=== PATIENT | male | born 1970 | race Caucasian/White ===

== ENCOUNTER 2021-03-08 05:46 | Emergency (ER) | payer MEDICAID ==
[~2021-03-08] VITALS: Ht 190.5 cm; Wt 90.9 kg
[2021-03-08] MEDS: normal saline 1000ML IV soln IV ONE (06:39)
[2021-03-08] MEDS: normal saline 1000ml 1,000 ML IV ONE (06:39)
[2021-03-08] MEDS: vancomycin/NS 1 GM ADD-VANTAGE 250 ML IV ONE (06:40)
[2021-03-08] MEDS: ketorolac trometh. 30mg/ml inj. IV ONE (06:51)
[2021-03-08] MEDS: clindamycin 600mg/D5W 50ml 50 ML IV ONE (06:51)
[2021-03-08] MEDS: ondansetron/PF 4mg/2ml inj IV ONE (06:51)
[2021-03-08] MEDS: acetaminophen 325mg tablet PO ONE (06:52)
[2021-03-08 06:58] LABS: CLARITY,URINE CLEAR (Clear); COLOR,URINE YELLOW (Yellow); GLUCOSE, URINE NEGATIVE (Neg); KETONES,URINE NEGATIVE (Neg); LEUKOCYTE ESTERASE ,URINE NEGATIVE (Neg); NITRITES, URINE NEGATIVE (Neg); OCCULT BLOOD,URINE SMALL (Neg); PROTEIN,URINE NEGATIVE (Neg); UROBILINOGEN,URINE 0.2 E.U/dL (0.2-1.0)
[2021-03-08 07:01] LABS: BASOPHILS % (AUTO) 0.2 % (0-1); EOSINOPHILS % (AUTO) 0.1 % (0-6); HEMATOCRIT 38.8 % (42.0-52.0); HEMOGLOBIN 13.3 g/dl (14.0-17.9); LYMPHOCYTES # (AUTO) 0.9 X10'3 (1.1-4.8); LYMPHOCYTES % (AUTO) 7.4 % (21-51); MEAN CORPUSCULAR HEMOGLOBIN 31.8 PG (27.0-31.0); MEAN CORPUSCULAR HGB CONC 34.2 g/dL (33.0-36.5); MEAN PLATELET VOLUME 7.8 FL (7.4-10.4); MONOCYTES % (AUTO) 8.2 % (2-12); NEUTROPHILS # (AUTO) 9.8 X10'3 (1.8-7.7); NEUTROPHILS % (AUTO) 84.1 % (42-75); PLATELET COUNT 145 X10'3 (140-440); RED BLOOD COUNT 4.18 X10'6 (4.70-6.10); RED CELL DISTRIBUTION WIDTH 13.6 % (11.5-14.5); WHITE BLOOD COUNT 11.7 X10'3 (4.5-11.0)
[2021-03-08 07:11] LABS: ALANINE AMINOTRANSFERASE 50 U/L (12-78); ALBUMIN/GLOBULIN RATIO 0.8 (1.1-1.5); ALKALINE PHOSPHATASE 62 IU/L (46-116); ANION GAP 7 (8-16); ASPARTATE AMINO TRANSFERASE 43 U/L (10-37); BILIRUBIN,TOTAL 0.7 MG/DL (0.1-1.0); BLOOD UREA NITROGEN 13 MG/DL (7-18); BUN/CREATININE RATIO 12.1 (5.4-32.0); CALCIUM 8.4 MG/DL (8.5-10.1); CHLORIDE 98 MMOL/L (99-107); CREATININE 1.07 MG/DL (0.60-1.10); GLUCOSE 128 MG/DL (70-104); MAGNESIUM 2.1 MG/DL (1.5-2.4); POTASSIUM 4.4 MMOL/L (3.5-5.1); SODIUM 133 MMOL/L (135-145); TOTAL CARBON DIOXIDE 28.1 MMOL/L (24-32); TOTAL PROTEIN 6.9 G/DL (6.4-8.2); eGFR 73 ML/MIN
[2021-03-08 07:13] LABS: UA COLLECTION TYPE VOIDED
[2021-03-08 07:15] LABS: HYALINE CASTS 0-3 /LPF (NEGATIVE); SQUAMOUS EPITHELIAL CELL,UR FEW /LPF (FEW)
[2021-03-08 07:16] LABS: BACTERIA,URINE FEW /HPF (Neg); FINE GRANULAR CAST 0-3 /LPF (NEGATIVE); WBC,URINE 0-4 /HPF (0-4)
[2021-03-08] MEDS ORDERED: CLIN-15 PO (07:46)
[2021-03-08] MEDS ORDERED: DOXY100C43 PO (07:46)
[2021-03-08] MEDS ORDERED: ONDA4TAB6 PO (07:46)
[2021-03-08 08:45] VITALS: BP 124/77
[2021-03-08 10:27] LABS: PLATELET ESTIMATE NORMAL; TOTAL CELLS COUNTED 100
[2021-03-08 10:28] LABS: TOXIC VACUOLATION FEW
== END 2021-03-08 08:49 | disposition home or self-care (01) ==
LOC: ER 05:47
DX: L03.116 Cellulitis of left lower limb (principal); R11.2 Nausea with vomiting, unspecified; M79.89 Other specified soft tissue disorders; M79.605 Pain in left leg; R50.9 Fever, unspecified; Z79.2 Long term (current) use of antibiotics; Z79.899 Other long term (current) drug therapy
CPT/HCPCS: 36415; 71045; 73600; 80053; 81001; 83605; 83735; 84145; 85007; 85025; 87040; 93005; 96365; 96368; 96375; 99285; J1885; J2405; J3370; J7030; J3490

== ENCOUNTER 2021-03-13 02:20 | Inpatient (IN) | payer MEDICAID ==
[~2021-03-13] VITALS: Ht 190.5 cm; Wt 90.0 kg
[~2021-03-13 02:20] MED LIST: CLIN-15 PO; DOXY100C43 PO; ONDA4TAB6 PO
[2021-03-13] MEDS ORDERED: CefTRIAXone 2gm/D5W 50ml BAG 50 ML IV ONE (03:00)
[2021-03-13] MEDS ORDERED: vancomycin/NS 1 GM ADD-VANTAGE 250 ML IV ONE (03:00)
[2021-03-13 03:37] LABS: ALANINE AMINOTRANSFERASE 75 U/L (12-78); ALBUMIN 2.3 G/DL (3.4-5.0); ALBUMIN/GLOBULIN RATIO 0.6 (1.1-1.5); ALKALINE PHOSPHATASE 85 IU/L (46-116); ANION GAP 8 (8-16); ASPARTATE AMINO TRANSFERASE 46 U/L (10-37); BILIRUBIN,TOTAL 0.4 MG/DL (0.1-1.0); BLOOD UREA NITROGEN 15 MG/DL (7-18); BUN/CREATININE RATIO 14.7 (5.4-32.0); CALCIUM 8.3 MG/DL (8.5-10.1); CHLORIDE 103 MMOL/L (99-107); CREATININE 1.02 MG/DL (0.60-1.10); GLUCOSE 111 MG/DL (70-104); POTASSIUM 3.5 MMOL/L (3.5-5.1); SODIUM 137 MMOL/L (135-145); TOTAL CARBON DIOXIDE 26.1 MMOL/L (24-32); TOTAL PROTEIN 6.3 G/DL (6.4-8.2); eGFR 77 ML/MIN
[2021-03-13 03:39] LABS: BASOPHILS # (AUTO) 0.1 X10'3 (0-0.2); BASOPHILS % (AUTO) 1.5 % (0-1); EOSINOPHILS # (AUTO) 0.1 X10'3 (0-0.9); EOSINOPHILS % (AUTO) 1.4 % (0-6); HEMATOCRIT 33.6 % (42.0-52.0); HEMOGLOBIN 11.5 g/dl (14.0-17.9); LYMPHOCYTES % (AUTO) 10.5 % (21-51); MEAN CORPUSCULAR HEMOGLOBIN 31.8 PG (27.0-31.0); MEAN CORPUSCULAR HGB CONC 34.4 g/dL (33.0-36.5); MEAN CORPUSCULAR VOLUME 92.6 FL (78-98); MEAN PLATELET VOLUME 7.6 FL (7.4-10.4); MONOCYTES # (AUTO) 0.8 X10'3 (0-0.9); MONOCYTES % (AUTO) 7.9 % (2-12); NEUTROPHILS # (AUTO) 7.5 X10'3 (1.8-7.7); NEUTROPHILS % (AUTO) 78.7 % (42-75); PLATELET COUNT 263 X10'3 (140-440); RED BLOOD COUNT 3.62 X10'6 (4.70-6.10); RED CELL DISTRIBUTION WIDTH 13.9 % (11.5-14.5); WHITE BLOOD COUNT 9.6 X10'3 (4.5-11.0)
[2021-03-13] MEDS ORDERED: NO HOME MEDS (04:15)
[2021-03-13] MEDS ORDERED: iohexol 300mg/ml 100ml inj. ONE (04:34)
[2021-03-13 04:41] LABS: D-DIMER 0.66 MG/L FEU (0-0.50)
--- NOTE | 2021-03-13 04:44 | NUR ---
Patient to CT
[2021-03-13] MEDS ORDERED: morphine 2 MG/ML inj. syringe IV ONE ×2 (05:10→05:20)
[2021-03-13] MEDS ORDERED: potassium Cl 20 mEq SR tablet PO PRN ×2 (05:15)
[2021-03-13] MEDS ORDERED: acetaminophen 325mg tablet PO PRN (05:15)
[2021-03-13] MEDS ORDERED: ondansetron/PF 4mg/2ml inj IV PRN (05:15)
[2021-03-13] MEDS ORDERED: mag hydrox/Alum hydrox/simeth 30ml oral suspension PO PRN (05:15)
[2021-03-13] MEDS ORDERED: magnesium hydroxide 30ml (MOM) UD suspension PO PRN (05:15)
[2021-03-13] MEDS ORDERED: potassium Cl 40MEQ/1/2NS 520ml 520 ML IV PRN ×2 (05:15)
--- NOTE | 2021-03-13 07:00 | NUR ---
Patient in room [facility]. I have received report from Clarisse SAVAGE and had the opportunity to ask questions and assume patient care.
[2021-03-13] MEDS: K and/or MAG REPLACEMENT MC SCH ×2 (08:00→20:00)
[2021-03-13 08:13] VITALS: BP 111/78
[2021-03-13] MEDS: normal saline 1000ml 1,000 ML IV SCH ×3 (08:51→22:46)
[2021-03-13] MEDS: heparin, porcine 5000 units/ml vial SQ SCH ×2 (08:59→19:23)
[2021-03-13] MEDS: piperacillin/tazo 3.375gm/50ml 50 ML IV SCH ×2 (09:32→16:27)
[2021-03-13] MEDS: HYDROcodone/acetaminophen 10/325mg tab PO PRN ×3 (10:41→22:43)
[2021-03-13 12:36] VITALS: BP 99/66
[2021-03-13 12:50] VITALS: BP 110/66
--- NOTE | 2021-03-13 17:12 | NUR ---
PAGER ID: [phone] MESSAGE: Max Surg [phone] Re: [id number] Patients leg is getting more inflamed and increased redness to the site. Patient in increasing pain, Charge Nurse Hawa is concerned. Thanks Max
--- NOTE | 2021-03-13 17:30 | NUR ---
Antibiotic not hung at this time because zosyn is not compatible with the vanco retail shift manager will hang vanco as soon as they can.
--- NOTE | 2021-03-13 18:15 | NUR ---
Patient in room [facility]. I have received report from JANETTE Santana and had the opportunity to ask questions and assume patient care.
--- NOTE | 2021-03-13 18:23 | NUR ---
Patient in room [facility]. I have received report from JANETTE Santana and had the opportunity to ask questions and assume patient care.
--- NOTE | 2021-03-13 18:28 | NUR ---
Problems reprioritized. Patient report given, questions answered & plan of care reviewed with Trudy Grayson RN.
[2021-03-13] MEDS: morphine 2 MG/ML inj. syringe IV PRN (18:36)
--- NOTE | 2021-03-13 18:43 | NUR ---
Patient to CT
--- NOTE | 2021-03-13 18:45 | NUR ---
Patient back from CT.
[2021-03-13] MEDS: lactobacillus rhamnosus 10,000 MMU CELLS/CAPSULE PO SCH (19:23)
[2021-03-13] MEDS: VANCOmycin 1250MG/NS 250ml Bag 250 ML IV SCH (19:24)
[2021-03-13 20:20] VITALS: BP 106/69
[2021-03-14] VITALS (8 sets, daily range): BP systolic 90–134; BP diastolic 55–81
[2021-03-14] MEDS: piperacillin/tazo 3.375gm/50ml 50 ML IV SCH ×3 (00:13→15:47)
[2021-03-14] MEDS: HYDROcodone/acetaminophen 10/325mg tab PO PRN ×5 (03:25→20:54)
[2021-03-14] MEDS: VANCOmycin 1250MG/NS 250ml Bag 250 ML IV SCH ×2 (05:16→17:28)
[2021-03-14 06:00] LABS: BASOPHILS # (AUTO) 0.1 X10'3 (0-0.2); BASOPHILS % (AUTO) 1.2 % (0-1); EOSINOPHILS # (AUTO) 0.1 X10'3 (0-0.9); EOSINOPHILS % (AUTO) 1.4 % (0-6); HEMATOCRIT 35.7 % (42.0-52.0); HEMOGLOBIN 11.9 g/dl (14.0-17.9); LYMPHOCYTES # (AUTO) 0.9 X10'3 (1.1-4.8); LYMPHOCYTES % (AUTO) 11.7 % (21-51); MEAN CORPUSCULAR HEMOGLOBIN 31.1 PG (27.0-31.0); MEAN CORPUSCULAR HGB CONC 33.4 g/dL (33.0-36.5); MEAN CORPUSCULAR VOLUME 92.9 FL (78-98); MEAN PLATELET VOLUME 7.6 FL (7.4-10.4); MONOCYTES # (AUTO) 0.7 X10'3 (0-0.9); MONOCYTES % (AUTO) 8.5 % (2-12); NEUTROPHILS % (AUTO) 77.2 % (42-75); PLATELET COUNT 306 X10'3 (140-440); RED BLOOD COUNT 3.84 X10'6 (4.70-6.10); RED CELL DISTRIBUTION WIDTH 14.4 % (11.5-14.5); WHITE BLOOD COUNT 7.8 X10'3 (4.5-11.0)
--- NOTE | 2021-03-14 06:06 | NUR ---
Problems reprioritized. Patient report given, questions answered & plan of care reviewed with JANETTE Santana.
[2021-03-14 06:10] LABS: ALANINE AMINOTRANSFERASE 61 U/L (12-78); ALBUMIN 2.1 G/DL (3.4-5.0); ALBUMIN/GLOBULIN RATIO 0.5 (1.1-1.5); ALKALINE PHOSPHATASE 96 IU/L (46-116); ANION GAP 7 (8-16); ASPARTATE AMINO TRANSFERASE 32 U/L (10-37); BILIRUBIN,TOTAL 0.4 MG/DL (0.1-1.0); BLOOD UREA NITROGEN 11 MG/DL (7-18); BUN/CREATININE RATIO 12.6 (5.4-32.0); CHLORIDE 106 MMOL/L (99-107); CREATININE 0.87 MG/DL (0.60-1.10); GLUCOSE 91 MG/DL (70-104); POTASSIUM 4.4 MMOL/L (3.5-5.1); SODIUM 140 MMOL/L (135-145); TOTAL CARBON DIOXIDE 27.1 MMOL/L (24-32); eGFR > 90 ML/MIN
--- NOTE | 2021-03-14 06:50 | NUR ---
Patient in room [facility]. I have received report from Trudy Grayson RN and had the opportunity to ask questions and assume patient care.
--- NOTE | 2021-03-14 07:15 | NUR ---
PAGER ID: [phone] MESSAGE: Max Surg [phone] RE: Madonna German 352 patient had a critical Hct of 21.9 thanks Max.
[2021-03-14] MEDS: lactobacillus rhamnosus 10,000 MMU CELLS/CAPSULE PO SCH ×2 (07:32→20:54)
[2021-03-14] MEDS: heparin, porcine 5000 units/ml vial SQ SCH ×2 (07:35→20:56)
[2021-03-14] MEDS: K and/or MAG REPLACEMENT MC SCH ×2 (08:00→20:00)
--- NOTE | 2021-03-14 08:25 | NUR ---
The last BM was 03/13 in the am reported by the reported by patient. Addendum: 03/14/21 at 0835 by Singh BARBER Amended: Links added.
[2021-03-14] MEDS ORDERED: pneumococcal 23-VAL P-sac vacc 25 mcg/0.5ml vial IMVAC ONE (10:00)
[2021-03-14] MEDS: normal saline 1000ml 1,000 ML IV SCH (11:30)
--- NOTE | 2021-03-14 18:40 | NUR ---
Problems reprioritized. Patient report given, questions answered & plan of care reviewed with ERVIN PULIDO RN.
--- NOTE | 2021-03-14 18:43 | NUR ---
Patient in room [facility]. I have received report from JANETTE Santana and had the opportunity to ask questions and assume patient care.
[2021-03-14] MEDS: linezolid 600mg tablet PO SCH (20:55)
[2021-03-15] VITALS: BP 110/64
[2021-03-15] MEDS: HYDROcodone/acetaminophen 10/325mg tab PO PRN ×5 (01:02→21:43)
[2021-03-15] MEDS: cefazolin/dext.iso 2gm/100ml 100 ML IV SCH ×4 (01:02→23:45)
[2021-03-15] MEDS ORDERED: VANCOMYCIN LEVEL IV ONE (04:30)
[2021-03-15 05:52] LABS: BASOPHILS # (AUTO) 0.1 X10'3 (0-0.2); BASOPHILS % (AUTO) 1.3 % (0-1); EOSINOPHILS # (AUTO) 0.1 X10'3 (0-0.9); EOSINOPHILS % (AUTO) 1.7 % (0-6); HEMOGLOBIN 13.2 g/dl (14.0-17.9); LYMPHOCYTES # (AUTO) 1.3 X10'3 (1.1-4.8); LYMPHOCYTES % (AUTO) 15.3 % (21-51); MEAN CORPUSCULAR HEMOGLOBIN 31.4 PG (27.0-31.0); MEAN CORPUSCULAR HGB CONC 33.9 g/dL (33.0-36.5); MEAN CORPUSCULAR VOLUME 92.7 FL (78-98); MEAN PLATELET VOLUME 7.3 FL (7.4-10.4); MONOCYTES # (AUTO) 0.7 X10'3 (0-0.9); MONOCYTES % (AUTO) 8.7 % (2-12); NEUTROPHILS # (AUTO) 6.3 X10'3 (1.8-7.7); PLATELET COUNT 361 X10'3 (140-440); RED BLOOD COUNT 4.21 X10'6 (4.70-6.10); RED CELL DISTRIBUTION WIDTH 14.4 % (11.5-14.5); WHITE BLOOD COUNT 8.6 X10'3 (4.5-11.0)
[2021-03-15 05:58] LABS: ALANINE AMINOTRANSFERASE 56 U/L (12-78); ALBUMIN 2.2 G/DL (3.4-5.0); ALBUMIN/GLOBULIN RATIO 0.5 (1.1-1.5); ALKALINE PHOSPHATASE 80 IU/L (46-116); ANION GAP 6 (8-16); ASPARTATE AMINO TRANSFERASE 28 U/L (10-37); BILIRUBIN,TOTAL 0.3 MG/DL (0.1-1.0); BLOOD UREA NITROGEN 10 MG/DL (7-18); BUN/CREATININE RATIO 10.8 (5.4-32.0); CALCIUM 8.4 MG/DL (8.5-10.1); CHLORIDE 104 MMOL/L (99-107); CREATININE 0.93 MG/DL (0.60-1.10); GLUCOSE 74 MG/DL (70-104); POTASSIUM 4.3 MMOL/L (3.5-5.1); SODIUM 138 MMOL/L (135-145); TOTAL CARBON DIOXIDE 27.8 MMOL/L (24-32); TOTAL PROTEIN 6.8 G/DL (6.4-8.2); eGFR 86 ML/MIN
--- NOTE | 2021-03-15 06:26 | NUR ---
Problems reprioritized. Patient report given, questions answered & plan of care reviewed with JANETTE Cornelius.
[2021-03-15 07:00] VITALS: BP 108/63
[2021-03-15] MEDS: lactobacillus rhamnosus 10,000 MMU CELLS/CAPSULE PO SCH ×2 (07:58→19:41)
[2021-03-15] MEDS: heparin, porcine 5000 units/ml vial SQ SCH ×2 (07:58→19:41)
[2021-03-15] MEDS: linezolid 600mg tablet PO SCH ×2 (07:58→19:41)
[2021-03-15] MEDS: K and/or MAG REPLACEMENT MC SCH ×2 (08:00→19:17)
[2021-03-15] MEDS: morphine 2 MG/ML inj. syringe IV PRN ×3 (08:00→20:14)
[2021-03-15 12:16] VITALS: BP 103/58
--- NOTE | 2021-03-15 15:31 | NUR ---
Harshad Consult: Pt seen by RD for written/verbal low-tyramine diet ed w/ RD contact information provided. Pt reports has partial dentures requesting chopped meats and dislikes carrots; dietary notified. Pt reports has salami w/ him at bedside; RD encouraged limitations of salami at this time and encouraged pt to contact dietitian's office if further questions/concerns. Addendum: 03/15/21 at [address] Amended: Links added.
[2021-03-15 18:00] VITALS: BP 105/63
--- NOTE | 2021-03-15 18:05 | NUR ---
Problems reprioritized. Patient report given, questions answered & plan of care reviewed with Sayra Grayson RN.
--- NOTE | 2021-03-15 18:28 | NUR ---
Patient in room [facility]. I have received report from JANETTE Cornelius and had the opportunity to ask questions and assume patient care.
--- NOTE | 2021-03-15 18:32 | NUR ---
Patient in room [facility]. I have received report from JANETTE Cornelius and had the opportunity to ask questions and assume patient care.
[2021-03-15 22:10] VITALS: BP 101/58
[2021-03-15] MEDS: diphenhydrAMINE 25mg capsule PO PRN (23:45)
[2021-03-16] MEDS: morphine 2 MG/ML inj. syringe IV PRN ×6 (00:54→22:02)
[2021-03-16] MEDS: HYDROcodone/acetaminophen 10/325mg tab PO PRN ×5 (03:17→23:47)
[2021-03-16 06:17] LABS: BASOPHILS # (AUTO) 0.1 X10'3 (0-0.2); BASOPHILS % (AUTO) 1.2 % (0-1); EOSINOPHILS # (AUTO) 0.1 X10'3 (0-0.9); EOSINOPHILS % (AUTO) 1.1 % (0-6); HEMATOCRIT 37.6 % (42.0-52.0); HEMOGLOBIN 12.4 g/dl (14.0-17.9); LYMPHOCYTES % (AUTO) 11.1 % (21-51); MEAN CORPUSCULAR HEMOGLOBIN 30.5 PG (27.0-31.0); MEAN CORPUSCULAR HGB CONC 32.9 g/dL (33.0-36.5); MEAN CORPUSCULAR VOLUME 92.6 FL (78-98); MEAN PLATELET VOLUME 7.3 FL (7.4-10.4); MONOCYTES # (AUTO) 0.4 X10'3 (0-0.9); MONOCYTES % (AUTO) 4.9 % (2-12); NEUTROPHILS # (AUTO) 7.4 X10'3 (1.8-7.7); NEUTROPHILS % (AUTO) 81.7 % (42-75); PLATELET COUNT 398 X10'3 (140-440); RED BLOOD COUNT 4.05 X10'6 (4.70-6.10); RED CELL DISTRIBUTION WIDTH 14.6 % (11.5-14.5)
[2021-03-16 06:22] LABS: ALANINE AMINOTRANSFERASE 50 U/L (12-78); ALBUMIN/GLOBULIN RATIO 0.5 (1.1-1.5); ALKALINE PHOSPHATASE 66 IU/L (46-116); ANION GAP 7 (8-16); ASPARTATE AMINO TRANSFERASE 25 U/L (10-37); BILIRUBIN,TOTAL 0.3 MG/DL (0.1-1.0); BLOOD UREA NITROGEN 12 MG/DL (7-18); BUN/CREATININE RATIO 12.6 (5.4-32.0); CALCIUM 8.2 MG/DL (8.5-10.1); CHLORIDE 104 MMOL/L (99-107); CREATININE 0.95 MG/DL (0.60-1.10); GLUCOSE 110 MG/DL (70-104); POTASSIUM 4.4 MMOL/L (3.5-5.1); SODIUM 138 MMOL/L (135-145); TOTAL CARBON DIOXIDE 27.5 MMOL/L (24-32); TOTAL PROTEIN 6.4 G/DL (6.4-8.2); eGFR 84 ML/MIN
--- NOTE | 2021-03-16 06:23 | NUR ---
Problems reprioritized. Patient report given, questions answered & plan of care reviewed with JANETTE Cornelius.
[2021-03-16 07:00] VITALS: BP 134/75
[2021-03-16] MEDS: K and/or MAG REPLACEMENT MC SCH ×2 (08:00→19:35)
[2021-03-16] MEDS: heparin, porcine 5000 units/ml vial SQ SCH ×2 (08:53→19:35)
[2021-03-16] MEDS: linezolid 600mg tablet PO SCH ×2 (08:53→19:34)
[2021-03-16] MEDS: cefazolin/dext.iso 2gm/100ml 100 ML IV SCH ×3 (08:53→23:41)
[2021-03-16] MEDS: lactobacillus rhamnosus 10,000 MMU CELLS/CAPSULE PO SCH ×2 (08:53→19:34)
[2021-03-16 12:11] VITALS: BP 120/76
[2021-03-16] MEDS ORDERED: emollient combination-Eucerin 250 ML LOTION TP SCH (13:40)
--- NOTE | 2021-03-16 13:40 | NUR ---
Pt requests to change RNs. Radha Goode RN will assume care of this patient.
--- NOTE | 2021-03-16 14:52 | NUR ---
Problems reprioritized. Patient report given, questions answered & plan of care reviewed with Radha SAVAGE.
[2021-03-16 18:00] VITALS: BP 139/74
--- NOTE | 2021-03-16 18:15 | NUR ---
Problems reprioritized. Patient report given, questions answered & plan of care reviewed with PRUDENCEJANETTE. Addendum: 03/16/21 at 1816 by Radha Estrada RN PLEASE DISREGARD NOTE. WRONG PATIENT.
--- NOTE | 2021-03-16 18:16 | NUR ---
Problems reprioritized. Patient report given, questions answered & plan of care reviewed with JANETTE WOODWARD.
[2021-03-16] MEDS: mineral oil/petrolatum, white cream 113gm jar TP SCH (18:48)
[2021-03-17] VITALS: BP 118/76
--- NOTE | 2021-03-17 02:00 | NUR ---
Patient in room [facility]. I have received report from Janeth SAVAGE and had the opportunity to ask questions and assume patient care.
[2021-03-17] MEDS: morphine 2 MG/ML inj. syringe IV PRN ×4 (02:24→19:10)
--- NOTE | 2021-03-17 02:35 | NUR ---
I have reviewed and agree with the assessment preformed by Janeth SAVAGE
[2021-03-17] MEDS: HYDROcodone/acetaminophen 10/325mg tab PO PRN ×4 (03:52→22:46)
--- NOTE | 2021-03-17 06:08 | NUR ---
Problems reprioritized. Patient report given, questions answered & plan of care reviewed with Radha SAVAGE.
[2021-03-17 06:15] LABS: BASOPHILS # (AUTO) 0.1 X10'3 (0-0.2); BASOPHILS % (AUTO) 1.2 % (0-1); EOSINOPHILS # (AUTO) 0.2 X10'3 (0-0.9); EOSINOPHILS % (AUTO) 2.4 % (0-6); HEMATOCRIT 38.6 % (42.0-52.0); HEMOGLOBIN 12.8 g/dl (14.0-17.9); LYMPHOCYTES # (AUTO) 1.5 X10'3 (1.1-4.8); LYMPHOCYTES % (AUTO) 22.5 % (21-51); MEAN CORPUSCULAR HEMOGLOBIN 30.7 PG (27.0-31.0); MEAN CORPUSCULAR HGB CONC 33.1 g/dL (33.0-36.5); MEAN CORPUSCULAR VOLUME 92.7 FL (78-98); MEAN PLATELET VOLUME 6.7 FL (7.4-10.4); MONOCYTES # (AUTO) 0.6 X10'3 (0-0.9); MONOCYTES % (AUTO) 9.7 % (2-12); NEUTROPHILS # (AUTO) 4.3 X10'3 (1.8-7.7); NEUTROPHILS % (AUTO) 64.2 % (42-75); PLATELET COUNT 408 X10'3 (140-440); RED BLOOD COUNT 4.17 X10'6 (4.70-6.10); RED CELL DISTRIBUTION WIDTH 14.4 % (11.5-14.5); WHITE BLOOD COUNT 6.7 X10'3 (4.5-11.0)
[2021-03-17 06:34] LABS: ALANINE AMINOTRANSFERASE 52 U/L (12-78); ALBUMIN 2.1 G/DL (3.4-5.0); ALBUMIN/GLOBULIN RATIO 0.5 (1.1-1.5); ALKALINE PHOSPHATASE 68 IU/L (46-116); ANION GAP 5 (8-16); ASPARTATE AMINO TRANSFERASE 26 U/L (10-37); BILIRUBIN,TOTAL 0.3 MG/DL (0.1-1.0); BLOOD UREA NITROGEN 12 MG/DL (7-18); BUN/CREATININE RATIO 12.5 (5.4-32.0); CALCIUM 8.5 MG/DL (8.5-10.1); CHLORIDE 105 MMOL/L (99-107); CREATININE 0.96 MG/DL (0.60-1.10); GLUCOSE 82 MG/DL (70-104); POTASSIUM 4.6 MMOL/L (3.5-5.1); SODIUM 140 MMOL/L (135-145); TOTAL CARBON DIOXIDE 29.7 MMOL/L (24-32); TOTAL PROTEIN 6.6 G/DL (6.4-8.2); eGFR 83 ML/MIN
[2021-03-17 07:25] VITALS: BP 106/63
[2021-03-17] MEDS: cefazolin/dext.iso 2gm/100ml 100 ML IV SCH ×2 (07:40→16:17)
[2021-03-17] MEDS: mineral oil/petrolatum, white cream 113gm jar TP SCH (07:40)
[2021-03-17] MEDS: lactobacillus rhamnosus 10,000 MMU CELLS/CAPSULE PO SCH ×2 (07:40→19:09)
[2021-03-17] MEDS: linezolid 600mg tablet PO SCH ×2 (07:40→19:09)
[2021-03-17] MEDS: heparin, porcine 5000 units/ml vial SQ SCH ×2 (07:40→19:10)
[2021-03-17] MEDS: K and/or MAG REPLACEMENT MC SCH ×2 (07:54→19:22)
[2021-03-17 12:05] VITALS: BP 112/91
[2021-03-17 18:00] VITALS: BP 125/65
--- NOTE | 2021-03-17 18:09 | NUR ---
Problems reprioritized. Patient report given, questions answered & plan of care reviewed with JANETTE Retana.
--- NOTE | 2021-03-17 18:20 | NUR ---
Patient in room [facility]. I have received report from BETHANY SAVAGE and had the opportunity to ask questions and assume patient care.
[2021-03-18] MEDS: cefazolin/dext.iso 2gm/100ml 100 ML IV SCH ×2 (00:04→08:01)
[2021-03-18] MEDS: morphine 2 MG/ML inj. syringe IV PRN ×4 (00:17→14:34)
[2021-03-18 00:35] VITALS: BP 112/64
[2021-03-18] MEDS: HYDROcodone/acetaminophen 10/325mg tab PO PRN ×3 (02:57→12:04)
[2021-03-18] MEDS: diphenhydrAMINE 25mg capsule PO PRN (02:58)
[2021-03-18 06:09] LABS: BASOPHILS % (AUTO) 0.7 % (0-1); EOSINOPHILS # (AUTO) 0.1 X10'3 (0-0.9); EOSINOPHILS % (AUTO) 1.9 % (0-6); HEMATOCRIT 37.9 % (42.0-52.0); HEMOGLOBIN 12.9 g/dl (14.0-17.9); LYMPHOCYTES # (AUTO) 1.3 X10'3 (1.1-4.8); LYMPHOCYTES % (AUTO) 19.6 % (21-51); MEAN CORPUSCULAR HEMOGLOBIN 31.4 PG (27.0-31.0); MEAN CORPUSCULAR HGB CONC 34.1 g/dL (33.0-36.5); MEAN CORPUSCULAR VOLUME 92.2 FL (78-98); MEAN PLATELET VOLUME 6.9 FL (7.4-10.4); MONOCYTES # (AUTO) 0.7 X10'3 (0-0.9); MONOCYTES % (AUTO) 10.3 % (2-12); NEUTROPHILS # (AUTO) 4.5 X10'3 (1.8-7.7); NEUTROPHILS % (AUTO) 67.5 % (42-75); PLATELET COUNT 431 X10'3 (140-440); RED BLOOD COUNT 4.12 X10'6 (4.70-6.10); RED CELL DISTRIBUTION WIDTH 14.1 % (11.5-14.5); WHITE BLOOD COUNT 6.7 X10'3 (4.5-11.0)
[2021-03-18 06:28] LABS: ALANINE AMINOTRANSFERASE 50 U/L (12-78); ALBUMIN 2.2 G/DL (3.4-5.0); ALBUMIN/GLOBULIN RATIO 0.4 (1.1-1.5); ALKALINE PHOSPHATASE 69 IU/L (46-116); ANION GAP 7 (8-16); ASPARTATE AMINO TRANSFERASE 27 U/L (10-37); BILIRUBIN,TOTAL 0.4 MG/DL (0.1-1.0); BLOOD UREA NITROGEN 14 MG/DL (7-18); BUN/CREATININE RATIO 15.7 (5.4-32.0); CALCIUM 8.5 MG/DL (8.5-10.1); CHLORIDE 104 MMOL/L (99-107); CREATININE 0.89 MG/DL (0.60-1.10); GLUCOSE 83 MG/DL (70-104); POTASSIUM 4.5 MMOL/L (3.5-5.1); SODIUM 139 MMOL/L (135-145); TOTAL CARBON DIOXIDE 27.7 MMOL/L (24-32); TOTAL PROTEIN 7.1 G/DL (6.4-8.2); eGFR 90 ML/MIN
--- NOTE | 2021-03-18 06:35 | NUR ---
Problems reprioritized. Patient report given, questions answered & plan of care reviewed with LALITO SAVAGE.
--- NOTE | 2021-03-18 06:57 | NUR ---
Patient in room [facility] 345A. I have received report from JANETTE MARTIN and had the opportunity to ask questions and assume patient care.
[2021-03-18] MEDS: lactobacillus rhamnosus 10,000 MMU CELLS/CAPSULE PO SCH (07:59)
[2021-03-18] MEDS: linezolid 600mg tablet PO SCH (07:59)
[2021-03-18 08:00] VITALS: BP 99/57
[2021-03-18] MEDS: K and/or MAG REPLACEMENT MC SCH (08:00)
[2021-03-18] MEDS: heparin, porcine 5000 units/ml vial SQ SCH (08:01)
[2021-03-18 12:00] VITALS: BP 114/55
[2021-03-18] MEDS: mineral oil/petrolatum, white cream 113gm jar TP SCH (12:04)
--- NOTE | 2021-03-18 12:06 | NUR ---
Initial: Pt admit DX L leg cellulitis PO 100% avg regular diet meeting needs. [facility] 03/15. Will continue to monitor. Rec: 1. continue regular diet 2. routine bowel care 3. scaled wt this admit Addendum: 03/18/21 at [address] Amended: Links added.
[2021-03-18] MEDS ORDERED: LINE600T12 PO (16:42)
[2021-03-18] MEDS ORDERED: HYDR-3965 PO (16:42)
--- NOTE | 2021-03-18 17:20 | NUR ---
PATIENT STABLE AND APPROPRIATE FOR DISCHARGE, IV TAKEN OUT, EDUCATION GIVEN, SCRIPT GIVEN FOR [facility], ABX E-SCRIPTED TO PREFERRED PHARMACY, ALL BELONGINGS SENT WITH PATIENT, PATIENT TAKEN TO CAR BY WHEEL CHAIR WHERE PATIENT WILL DRIVE SELF HOME
== END 2021-03-18 17:36 | disposition home or self-care (01) | DRG 383 ==
LOC: ER 02:20 → ED HOLD 05:13 → SUR 3N 07:55
PROVIDERS: ADMIT Internal Medicine; ATTEND Internal Medicine
PROC: BQ2S1ZZ Computerized Tomography (CT Scan) of Left Lower Extremity using Low Osmolar Contrast (ICD-10-PCS; 2021-03-13)
PROC: 3E0234Z Introduction of Serum, Toxoid and Vaccine into Muscle, Percutaneous Approach (ICD-10-PCS; principal; 2021-03-14)
DX: L03.116 Cellulitis of left lower limb (principal); F15.10 Other stimulant abuse, uncomplicated; I89.0 Lymphedema, not elsewhere classified; Z59.0 Homelessness; Z23 Encounter for immunization
CPT/HCPCS: 36415; 73700; 73701; 80053; 82948; 83605; 84145; 85025; 85379; 87040; 87070; 87077; 87081; 87186; 90732; 93926; 93971; 99285; G0378; J0696; J1644; J2270; J2543; J3370; J7030; Q0163; Q9967

== ENCOUNTER 2021-03-20 19:39 | Emergency (ER) | payer MEDICAID ==
[~2021-03-20] VITALS: Ht 190.5 cm; Wt 93.2 kg
[~2021-03-20 19:39] MED LIST changes: -CLIN-15 PO; -DOXY100C43 PO; +HYDR-3965 PO; +LINE600T12 PO; -ONDA4TAB6 PO
[2021-03-20 19:50] VITALS: BP 123/77
[2021-03-20] MEDS ORDERED: LEVO750T46 PO (20:45)
--- NOTE | 2021-03-20 20:46 | NUR ---
PT presents d/t worstening left leg cellulitis. Pt completed inpatient treatment for same 3 days ago but was unable to fill his antibiotics after discharge. Pt now notes increased swelling and pain unrelieved by LISSETTE cruz. Pt states "I called the nurses upstairs and they told me to come back to the ER." Pt AAOx4, no s/sx of acute distress noted at this time. Respirations even, unlabored. Will continue to monitor.
== END 2021-03-20 20:55 | disposition home or self-care (01) ==
LOC: ER 19:40
DX: L03.116 Cellulitis of left lower limb (principal); F12.90 Cannabis use, unspecified, uncomplicated; F15.90 Other stimulant use, unspecified, uncomplicated; Z79.2 Long term (current) use of antibiotics; Z79.899 Other long term (current) drug therapy
CPT/HCPCS: 99283

== ENCOUNTER 2021-03-27 00:38 | Inpatient (IN) | payer MEDICAID ==
[~2021-03-27] VITALS: Ht 190.5 cm; Wt 90.9 kg
[~2021-03-27 00:38] MED LIST changes: +LEVO750T46 PO
[2021-03-27] MEDS ORDERED: normal saline 1000ML IV soln IV ONE (01:25)
[2021-03-27 01:38] LABS: BASOPHILS # (AUTO) 0.1 X10'3 (0-0.2); EOSINOPHILS # (AUTO) 0.2 X10'3 (0-0.9); EOSINOPHILS % (AUTO) 2.8 % (0-6); HEMATOCRIT 34.7 % (42.0-52.0); HEMOGLOBIN 11.7 g/dl (14.0-17.9); LYMPHOCYTES # (AUTO) 1.2 X10'3 (1.1-4.8); LYMPHOCYTES % (AUTO) 22.3 % (21-51); MEAN CORPUSCULAR HEMOGLOBIN 31.2 PG (27.0-31.0); MEAN CORPUSCULAR HGB CONC 33.8 g/dL (33.0-36.5); MEAN CORPUSCULAR VOLUME 92.2 FL (78-98); MEAN PLATELET VOLUME 6.9 FL (7.4-10.4); MONOCYTES # (AUTO) 0.7 X10'3 (0-0.9); MONOCYTES % (AUTO) 12.5 % (2-12); NEUTROPHILS # (AUTO) 3.3 X10'3 (1.8-7.7); NEUTROPHILS % (AUTO) 61.4 % (42-75); PLATELET COUNT 284 X10'3 (140-440); RED BLOOD COUNT 3.76 X10'6 (4.70-6.10); RED CELL DISTRIBUTION WIDTH 13.7 % (11.5-14.5); WHITE BLOOD COUNT 5.3 X10'3 (4.5-11.0)
[2021-03-27 01:55] LABS: ALANINE AMINOTRANSFERASE 36 U/L (12-78); ALBUMIN 2.5 G/DL (3.4-5.0); ALBUMIN/GLOBULIN RATIO 0.6 (1.1-1.5); ALKALINE PHOSPHATASE 80 IU/L (46-116); ANION GAP 6 (8-16); ASPARTATE AMINO TRANSFERASE 29 U/L (10-37); BILIRUBIN,TOTAL 0.2 MG/DL (0.1-1.0); BLOOD UREA NITROGEN 16 MG/DL (7-18); BUN/CREATININE RATIO 15.8 (5.4-32.0); CALCIUM 8.1 MG/DL (8.5-10.1); CHLORIDE 102 MMOL/L (99-107); CREATININE 1.01 MG/DL (0.60-1.10); GLUCOSE 96 MG/DL (70-104); MAGNESIUM 2.4 MG/DL (1.5-2.4); POTASSIUM 4.1 MMOL/L (3.5-5.1); SODIUM 137 MMOL/L (135-145); TOTAL PROTEIN 6.9 G/DL (6.4-8.2); eGFR 78 ML/MIN
[2021-03-27] MEDS ORDERED: vancomycin/NS 1 GM ADD-VANTAGE 250 ML IV ONE (02:15)
[2021-03-27] MEDS ORDERED: piperacillin/tazo 3.375gm/50ml 50 ML IV ONE (02:15)
[2021-03-27 02:45] LABS: CLARITY,URINE CLEAR (Clear); COLOR,URINE STRAW (Yellow); GLUCOSE, URINE NEGATIVE (Neg); KETONES,URINE NEGATIVE (Neg); LEUKOCYTE ESTERASE ,URINE NEGATIVE (Neg); NITRITES, URINE NEGATIVE (Neg); OCCULT BLOOD,URINE NEGATIVE (Neg); PROTEIN,URINE NEGATIVE (Neg); UROBILINOGEN,URINE 0.2 E.U/dL (0.2-1.0)
[2021-03-27] MEDS ORDERED: magnesium Cl slow-release 64mg tablet PO PRN (02:50)
[2021-03-27] MEDS ORDERED: magnesium 4gm in 100ml NS 100 ML IV PRN (02:50)
[2021-03-27] MEDS ORDERED: ondansetron/PF 4mg/2ml inj IV PRN (02:50)
[2021-03-27] MEDS ORDERED: potassium Cl 20 mEq SR tablet PO PRN ×2 (02:50)
[2021-03-27] MEDS ORDERED: acetaminophen 325mg tablet PO PRN ×2 (02:50)
[2021-03-27] MEDS ORDERED: potassium Cl 40MEQ/1/2NS 520ml 520 ML IV PRN ×2 (02:50)
[2021-03-27] MEDS ORDERED: morphine 2 MG/ML inj. syringe IV PRN (02:50)
[2021-03-27] MEDS ORDERED: magnesium 2GM in 50ml NS 50 ML IV PRN (02:50)
[2021-03-27] MEDS ORDERED: HYDROcodone/acetaminophen 5mg/325mg tablet PO PRN (02:50)
[2021-03-27 02:52] LABS: URINE AMPHETAMINE SCREEN POSITIVE (Neg); URINE BARBITUATE SCREEN NEGATIVE (Neg); URINE BENZODIAZEPINES SCREEN NEGATIVE (Neg); URINE CANNABINOID SCREEN POSITIVE (Neg); URINE COCAINE SCREEN NEGATIVE (Neg); URINE METHADONE SCREEN NEGATIVE (Neg); URINE OPIATE SCREEN NEGATIVE (Neg); URINE PHENCYCLIDINE SCREEN NEGATIVE (Neg)
[2021-03-27] MEDS: normal saline 1000ml 1,000 ML IV SCH ×3 (03:03→14:39)
[2021-03-27 03:19] LABS: UA COLLECTION TYPE NON-SPECIFIED
[2021-03-27 04:07] VITALS: BP 142/71
--- NOTE | 2021-03-27 04:17 | NUR ---
Received report from Coral SAVAGE in the ER. Pt arrived on the unit via gurney and was able to slide himself over to his bed. He has NS running @ 100 mls/hr and Rocephin running at 12.5 mls/hr. He was on room air with VSS and no signs of distress. Will continue to monitor.
[2021-03-27] MEDS: morphine 2 MG/ML inj. syringe IV PRN ×4 (05:08→22:41)
--- NOTE | 2021-03-27 06:19 | NUR ---
Problems reprioritized. Patient report given, questions answered & plan of care reviewed with Altagracia SAVAGE.
--- NOTE | 2021-03-27 06:23 | NUR ---
Patient in room [facility]. I have received report from JANETTE Red and had the opportunity to ask questions and assume patient care.
[2021-03-27 06:59] VITALS: BP 123/77
[2021-03-27] MEDS: HYDROcodone/acetaminophen 10/325mg tab PO PRN ×3 (07:42→19:24)
[2021-03-27] MEDS: heparin, porcine 5000 units/ml vial SQ SCH ×2 (07:42→19:25)
[2021-03-27] MEDS: docusate sod 100mg capsule PO SCH ×2 (07:49→19:24)
[2021-03-27] MEDS: nicotine 14mg patch - 24hr TD SCH (07:50)
[2021-03-27] MEDS: K and/or MAG REPLACEMENT MC SCH ×2 (08:00→19:21)
[2021-03-27] MEDS ORDERED: NO HOME MEDS (09:16)
[2021-03-27 11:00] VITALS: BP 117/75
[2021-03-27] MEDS: VANCOmycin 1250MG/NS 250ml Bag 250 ML IV SCH (16:57)
--- NOTE | 2021-03-27 18:20 | NUR ---
Patient in room [facility]. I have received report from Altagracia SAVAGE and had the opportunity to ask questions and assume patient care.
--- NOTE | 2021-03-27 18:21 | NUR ---
Problems reprioritized. Patient report given, questions answered & plan of care reviewed with JANETTE Red.
[2021-03-27 20:02] VITALS: BP 108/66
[2021-03-27] MEDS ORDERED: temazepam 15mg capsule PO PRN (21:00)
[2021-03-28] VITALS: BP 104/63
[2021-03-28] MEDS: HYDROcodone/acetaminophen 10/325mg tab PO PRN ×4 (01:55→20:15)
[2021-03-28] MEDS: VANCOmycin 1250MG/NS 250ml Bag 250 ML IV SCH ×2 (04:38→16:29)
[2021-03-28] MEDS: morphine 2 MG/ML inj. syringe IV PRN (04:47)
[2021-03-28 06:06] LABS: BASOPHILS # (AUTO) 0.1 X10'3 (0-0.2); EOSINOPHILS # (AUTO) 0.2 X10'3 (0-0.9); HEMATOCRIT 36.2 % (42.0-52.0); HEMOGLOBIN 12.1 g/dl (14.0-17.9); MEAN PLATELET VOLUME 7.2 FL (7.4-10.4); MONOCYTES # (AUTO) 0.6 X10'3 (0-0.9); NEUTROPHILS # (AUTO) 2.3 X10'3 (1.8-7.7)
[2021-03-28 06:10] LABS: EOSINOPHILS % (AUTO) 4.4 % (0-6); LYMPHOCYTES % (AUTO) 25.1 % (21-51); MEAN CORPUSCULAR HEMOGLOBIN 30.9 PG (27.0-31.0); MEAN CORPUSCULAR HGB CONC 33.4 g/dL (33.0-36.5); MEAN CORPUSCULAR VOLUME 92.4 FL (78-98); MONOCYTES % (AUTO) 13.4 % (2-12); NEUTROPHILS % (AUTO) 55.1 % (42-75); PLATELET COUNT 242 X10'3 (140-440); RED BLOOD COUNT 3.91 X10'6 (4.70-6.10); RED CELL DISTRIBUTION WIDTH 13.8 % (11.5-14.5); WHITE BLOOD COUNT 4.1 X10'3 (4.5-11.0)
--- NOTE | 2021-03-28 06:23 | NUR ---
Problems reprioritized. Patient report given, questions answered & plan of care reviewed with Vilma SAVAGE.
[2021-03-28 06:27] LABS: ALANINE AMINOTRANSFERASE 29 U/L (12-78); ALBUMIN 2.1 G/DL (3.4-5.0); ALBUMIN/GLOBULIN RATIO 0.5 (1.1-1.5); ALKALINE PHOSPHATASE 59 IU/L (46-116); ANION GAP 5 (8-16); ASPARTATE AMINO TRANSFERASE 21 U/L (10-37); BILIRUBIN,TOTAL 0.3 MG/DL (0.1-1.0); BLOOD UREA NITROGEN 11 MG/DL (7-18); BUN/CREATININE RATIO 14.3 (5.4-32.0); CHLORIDE 106 MMOL/L (99-107); CREATININE 0.77 MG/DL (0.60-1.10); GLUCOSE 86 MG/DL (70-104); MAGNESIUM 2.6 MG/DL (1.5-2.4); SODIUM 140 MMOL/L (135-145); TOTAL CARBON DIOXIDE 28.8 MMOL/L (24-32); TOTAL PROTEIN 6.2 G/DL (6.4-8.2); eGFR > 90 ML/MIN
--- NOTE | 2021-03-28 06:29 | NUR ---
Patient in room [facility]. I have received report from JANETTE Red and had the opportunity to ask questions and assume patient care.
[2021-03-28] MEDS: docusate sod 100mg capsule PO SCH ×2 (07:34→20:15)
[2021-03-28] MEDS: heparin, porcine 5000 units/ml vial SQ SCH ×2 (07:34→20:16)
[2021-03-28] MEDS: nicotine 14mg patch - 24hr TD SCH (07:35)
[2021-03-28] MEDS: K and/or MAG REPLACEMENT MC SCH ×2 (07:35→20:00)
[2021-03-28 08:00] VITALS: BP 107/73
--- NOTE | 2021-03-28 08:32 | NUR ---
PAGER ID: [phone] Dr Byers MESSAGE: Vilma - [phone] - Singh Cavanaugh - Room 349B - Wound care is recommending a vascular study of the left lower extremity.
[2021-03-28] MEDS: normal saline 1000ml 1,000 ML IV SCH ×2 (08:50→14:14)
[2021-03-28 11:00] VITALS: BP 100/49
--- NOTE | 2021-03-28 19:16 | NUR ---
Problems reprioritized. Patient report given, questions answered & plan of care reviewed with JANETTE Red.
--- NOTE | 2021-03-28 19:45 | NUR ---
Patient in room [facility]. I have received report from Vilma SAVAGE and had the opportunity to ask questions and assume patient care.
[2021-03-28 20:00] VITALS: BP 94/57
[2021-03-28] MEDS: mineral oil/petrolatum, white cream 113gm jar TP SCH (20:19)
[2021-03-29] VITALS: BP 112/59
[2021-03-29] MEDS: HYDROcodone/acetaminophen 10/325mg tab PO PRN ×5 (00:04→23:21)
[2021-03-29] MEDS: normal saline 1000ml 1,000 ML IV SCH ×2 (01:44→14:50)
[2021-03-29] MEDS: morphine 2 MG/ML inj. syringe IV PRN ×4 (03:02→21:06)
[2021-03-29 03:28] LABS: BASOPHILS % (AUTO) 0.4 % (0-1); EOSINOPHILS # (AUTO) 0.2 X10'3 (0-0.9); EOSINOPHILS % (AUTO) 3.9 % (0-6); HEMOGLOBIN 12.6 g/dl (14.0-17.9); LYMPHOCYTES # (AUTO) 1.4 X10'3 (1.1-4.8); LYMPHOCYTES % (AUTO) 34.3 % (21-51); MEAN CORPUSCULAR HEMOGLOBIN 30.7 PG (27.0-31.0); MEAN CORPUSCULAR HGB CONC 33.1 g/dL (33.0-36.5); MEAN CORPUSCULAR VOLUME 92.9 FL (78-98); MEAN PLATELET VOLUME 7.1 FL (7.4-10.4); MONOCYTES # (AUTO) 0.5 X10'3 (0-0.9); MONOCYTES % (AUTO) 12.2 % (2-12); NEUTROPHILS % (AUTO) 49.2 % (42-75); PLATELET COUNT 240 X10'3 (140-440); RED BLOOD COUNT 4.09 X10'6 (4.70-6.10); RED CELL DISTRIBUTION WIDTH 14.3 % (11.5-14.5)
[2021-03-29 03:39] LABS: ALANINE AMINOTRANSFERASE 29 U/L (12-78); ALBUMIN 2.2 G/DL (3.4-5.0); ALBUMIN/GLOBULIN RATIO 0.5 (1.1-1.5); ALKALINE PHOSPHATASE 67 IU/L (46-116); ANION GAP 5 (8-16); ASPARTATE AMINO TRANSFERASE 20 U/L (10-37); BILIRUBIN,TOTAL 0.2 MG/DL (0.1-1.0); BLOOD UREA NITROGEN 12 MG/DL (7-18); BUN/CREATININE RATIO 14.8 (5.4-32.0); CALCIUM 8.4 MG/DL (8.5-10.1); CHLORIDE 106 MMOL/L (99-107); CREATININE 0.81 MG/DL (0.60-1.10); GLUCOSE 99 MG/DL (70-104); MAGNESIUM 2.5 MG/DL (1.5-2.4); POTASSIUM 4.3 MMOL/L (3.5-5.1); SODIUM 141 MMOL/L (135-145); TOTAL CARBON DIOXIDE 30.4 MMOL/L (24-32); TOTAL PROTEIN 6.5 G/DL (6.4-8.2); VANCOMYCIN,TROUGH 9.6 UG/ML (6.0-14.0); eGFR > 90 ML/MIN
[2021-03-29] MEDS ORDERED: VANCOMYCIN LEVEL IV ONE (04:30)
[2021-03-29] MEDS: VANCOmycin 1250MG/NS 250ml Bag 250 ML IV SCH (04:53)
--- NOTE | 2021-03-29 06:17 | NUR ---
Problems reprioritized. Patient report given, questions answered & plan of care reviewed with Vilma SAVAGE.
--- NOTE | 2021-03-29 06:41 | NUR ---
Patient in room [facility]. I have received report from JANETTE Red and had the opportunity to ask questions and assume patient care.
[2021-03-29] MEDS: K and/or MAG REPLACEMENT MC SCH ×2 (06:48→20:00)
[2021-03-29] MEDS: heparin, porcine 5000 units/ml vial SQ SCH ×2 (07:22→19:17)
[2021-03-29] MEDS: docusate sod 100mg capsule PO SCH ×2 (07:22→19:17)
[2021-03-29] MEDS: nicotine 14mg patch - 24hr TD SCH (07:31)
[2021-03-29 08:00] VITALS: BP 102/63
--- NOTE | 2021-03-29 08:34 | NUR ---
PAGER ID: [phone] MESSAGE: Re: [id number] - Cavanaugh - Pt is + for MRSA in the Left leg wounds. Vilma - [phone]
[2021-03-29] MEDS: mineral oil/petrolatum, white cream 113gm jar TP SCH ×2 (08:57→20:30)
[2021-03-29 11:00] VITALS: BP 110/68
[2021-03-29] MEDS: vancomycin/NS 1 GM ADD-VANTAGE 250 ML IV SCH ×2 (13:59→21:05)
[2021-03-29 18:00] VITALS: BP 111/62
--- NOTE | 2021-03-29 18:15 | NUR ---
Patient in room [facility]. I have received report from JANETTE Esparza and had the opportunity to ask questions and assume patient care.
--- NOTE | 2021-03-29 18:37 | NUR ---
Problems reprioritized. Patient report given, questions answered & plan of care reviewed with JANETTE Rojas.
[2021-03-30] VITALS: BP 116/65
[2021-03-30] MEDS: morphine 2 MG/ML inj. syringe IV PRN ×4 (01:16→20:53)
[2021-03-30] MEDS: normal saline 1000ml 1,000 ML IV SCH ×3 (01:20→20:50)
[2021-03-30] MEDS: HYDROcodone/acetaminophen 10/325mg tab PO PRN ×5 (03:49→23:23)
[2021-03-30] MEDS: vancomycin/NS 1 GM ADD-VANTAGE 250 ML IV SCH ×2 (04:57→12:57)
[2021-03-30 06:17] LABS: BASOPHILS # (AUTO) 0.1 X10'3 (0-0.2); EOSINOPHILS # (AUTO) 0.2 X10'3 (0-0.9); HEMOGLOBIN 12.7 g/dl (14.0-17.9); MEAN CORPUSCULAR HEMOGLOBIN 30.6 PG (27.0-31.0); MEAN CORPUSCULAR HGB CONC 33.1 g/dL (33.0-36.5); MONOCYTES # (AUTO) 0.5 X10'3 (0-0.9); NEUTROPHILS # (AUTO) 1.5 X10'3 (1.8-7.7)
[2021-03-30 06:20] LABS: BASOPHILS % (AUTO) 1.6 % (0-1); EOSINOPHILS % (AUTO) 4.7 % (0-6); HEMATOCRIT 38.3 % (42.0-52.0); LYMPHOCYTES # (AUTO) 1.4 X10'3 (1.1-4.8); LYMPHOCYTES % (AUTO) 37.2 % (21-51); MEAN CORPUSCULAR VOLUME 92.5 FL (78-98); MONOCYTES % (AUTO) 14.1 % (2-12); NEUTROPHILS % (AUTO) 42.4 % (42-75); PLATELET COUNT 254 X10'3 (140-440); RED BLOOD COUNT 4.15 X10'6 (4.70-6.10); RED CELL DISTRIBUTION WIDTH 14.1 % (11.5-14.5); WHITE BLOOD COUNT 3.6 X10'3 (4.5-11.0)
[2021-03-30 06:40] LABS: ALANINE AMINOTRANSFERASE 28 U/L (12-78); ALBUMIN 2.4 G/DL (3.4-5.0); ALBUMIN/GLOBULIN RATIO 0.5 (1.1-1.5); ALKALINE PHOSPHATASE 60 IU/L (46-116); ANION GAP 4 (8-16); ASPARTATE AMINO TRANSFERASE 18 U/L (10-37); BILIRUBIN,TOTAL 0.2 MG/DL (0.1-1.0); BLOOD UREA NITROGEN 13 MG/DL (7-18); BUN/CREATININE RATIO 14.9 (5.4-32.0); CALCIUM 8.4 MG/DL (8.5-10.1); CHLORIDE 104 MMOL/L (99-107); CREATININE 0.87 MG/DL (0.60-1.10); GLUCOSE 91 MG/DL (70-104); MAGNESIUM 2.5 MG/DL (1.5-2.4); POTASSIUM 4.6 MMOL/L (3.5-5.1); SODIUM 140 MMOL/L (135-145); TOTAL CARBON DIOXIDE 32.2 MMOL/L (24-32); eGFR > 90 ML/MIN
--- NOTE | 2021-03-30 06:45 | NUR ---
Problems reprioritized. Patient report given, questions answered & plan of care reviewed with JANETTE Viramontes.
--- NOTE | 2021-03-30 07:02 | NUR ---
Patient in room [facility]. I have received report from JANETTE Rojas and had the opportunity to ask questions and assume patient care.
[2021-03-30] MEDS: docusate sod 100mg capsule PO SCH ×2 (07:59→21:01)
[2021-03-30 08:00] VITALS: BP 123/62
[2021-03-30] MEDS: K and/or MAG REPLACEMENT MC SCH ×2 (08:00→20:00)
[2021-03-30] MEDS: nicotine 14mg patch - 24hr TD SCH (08:00)
[2021-03-30] MEDS: heparin, porcine 5000 units/ml vial SQ SCH ×2 (08:01→20:59)
[2021-03-30 12:00] VITALS: BP 110/66
[2021-03-30] MEDS ORDERED: VANCOMYCIN LEVEL IV ONE (12:30)
[2021-03-30] MEDS: mineral oil/petrolatum, white cream 113gm jar TP SCH ×2 (13:00→21:02)
--- NOTE | 2021-03-30 18:48 | NUR ---
Problems reprioritized. Patient report given, questions answered & plan of care reviewed with JANETTE Geronimo. Pt up to shower. Dressing to LLE changed.
--- NOTE | 2021-03-30 18:50 | NUR ---
Patient in room [facility]. I have received report from LIAT SAVAGE and had the opportunity to ask questions and assume patient care.
[2021-03-30 20:00] VITALS: BP 120/69
[2021-03-30] MEDS: VANCOmycin 1250MG/NS 250ml Bag 250 ML IV SCH (20:56)
[2021-03-31] VITALS: BP 118/68
[2021-03-31] MEDS: morphine 2 MG/ML inj. syringe IV PRN ×3 (01:16→20:29)
[2021-03-31] MEDS: VANCOmycin 1250MG/NS 250ml Bag 250 ML IV SCH ×3 (04:50→20:44)
[2021-03-31] MEDS: HYDROcodone/acetaminophen 10/325mg tab PO PRN ×4 (04:50→22:44)
[2021-03-31] MEDS: normal saline 1000ml 1,000 ML IV SCH (04:50)
[2021-03-31 05:49] LABS: BASOPHILS % (AUTO) 0.7 % (0-1); EOSINOPHILS # (AUTO) 0.2 X10'3 (0-0.9); EOSINOPHILS % (AUTO) 4.6 % (0-6); HEMATOCRIT 39.2 % (42.0-52.0); HEMOGLOBIN 13.1 g/dl (14.0-17.9); LYMPHOCYTES # (AUTO) 1.2 X10'3 (1.1-4.8); LYMPHOCYTES % (AUTO) 30.8 % (21-51); MEAN CORPUSCULAR HEMOGLOBIN 30.9 PG (27.0-31.0); MEAN CORPUSCULAR HGB CONC 33.5 g/dL (33.0-36.5); MEAN CORPUSCULAR VOLUME 92.2 FL (78-98); MEAN PLATELET VOLUME 7.1 FL (7.4-10.4); MONOCYTES # (AUTO) 0.5 X10'3 (0-0.9); NEUTROPHILS % (AUTO) 50.9 % (42-75); PLATELET COUNT 236 X10'3 (140-440); RED BLOOD COUNT 4.26 X10'6 (4.70-6.10); RED CELL DISTRIBUTION WIDTH 14.3 % (11.5-14.5)
--- NOTE | 2021-03-31 06:30 | NUR ---
Problems reprioritized. Patient report given, questions answered & plan of care reviewed with LIAT SAVAGE.
--- NOTE | 2021-03-31 06:47 | NUR ---
Patient in room [facility]. I have received report from JANETTE Geronimo and had the opportunity to ask questions and assume patient care.
[2021-03-31 06:59] LABS: ALANINE AMINOTRANSFERASE 25 U/L (12-78); ALBUMIN 2.4 G/DL (3.4-5.0); ALBUMIN/GLOBULIN RATIO 0.5 (1.1-1.5); ALKALINE PHOSPHATASE 59 IU/L (46-116); ANION GAP 8 (8-16); ASPARTATE AMINO TRANSFERASE 21 U/L (10-37); BILIRUBIN,TOTAL 0.2 MG/DL (0.1-1.0); BLOOD UREA NITROGEN 15 MG/DL (7-18); BUN/CREATININE RATIO 17.4 (5.4-32.0); CALCIUM 8.5 MG/DL (8.5-10.1); CHLORIDE 107 MMOL/L (99-107); CREATININE 0.86 MG/DL (0.60-1.10); GLUCOSE 90 MG/DL (70-104); MAGNESIUM 2.6 MG/DL (1.5-2.4); POTASSIUM 4.2 MMOL/L (3.5-5.1); SODIUM 142 MMOL/L (135-145); TOTAL CARBON DIOXIDE 27.4 MMOL/L (24-32); TOTAL PROTEIN 6.8 G/DL (6.4-8.2); eGFR > 90 ML/MIN
[2021-03-31] MEDS: docusate sod 100mg capsule PO SCH ×2 (07:13→20:28)
[2021-03-31] MEDS: heparin, porcine 5000 units/ml vial SQ SCH ×2 (07:13→20:51)
[2021-03-31 08:00] VITALS: BP 114/67
[2021-03-31] MEDS: nicotine 14mg patch - 24hr TD SCH (08:00)
[2021-03-31] MEDS: K and/or MAG REPLACEMENT MC SCH ×2 (08:00→20:00)
[2021-03-31 12:00] VITALS: BP 118/68
[2021-03-31] MEDS: mineral oil/petrolatum, white cream 113gm jar TP SCH ×2 (12:58→20:52)
--- NOTE | 2021-03-31 18:35 | NUR ---
Problems reprioritized. Patient report given, questions answered & plan of care reviewed with JANETTE Geronimo.
--- NOTE | 2021-03-31 18:40 | NUR ---
Patient in room [facility]. I have received report from LIAT SAVAGE and had the opportunity to ask questions and assume patient care.
[2021-03-31 20:00] VITALS: BP 128/70
[2021-03-31] MEDS ORDERED: VANCOMYCIN LEVEL IV ONE (20:30)
[2021-04-01] VITALS: BP 117/65
[2021-04-01] MEDS: morphine 2 MG/ML inj. syringe IV PRN ×4 (04:12→22:54)
[2021-04-01] MEDS: VANCOmycin 1250MG/NS 250ml Bag 250 ML IV SCH ×3 (05:38→20:33)
[2021-04-01] MEDS: HYDROcodone/acetaminophen 10/325mg tab PO PRN ×3 (05:38→19:53)
--- NOTE | 2021-04-01 06:30 | NUR ---
Problems reprioritized. Patient report given, questions answered & plan of care reviewed with BETHANY SAVAGE.
[2021-04-01 06:35] LABS: HEMOGLOBIN 13.9 g/dl (14.0-17.9)
[2021-04-01 06:37] LABS: HEMATOCRIT 40.9 % (42.0-52.0); MEAN CORPUSCULAR HEMOGLOBIN 31.2 PG (27.0-31.0); MEAN CORPUSCULAR HGB CONC 33.9 g/dL (33.0-36.5); MEAN CORPUSCULAR VOLUME 92.2 FL (78-98); MEAN PLATELET VOLUME 7.3 FL (7.4-10.4); PLATELET COUNT 265 X10'3 (140-440); RED BLOOD COUNT 4.44 X10'6 (4.70-6.10); RED CELL DISTRIBUTION WIDTH 13.8 % (11.5-14.5); WHITE BLOOD COUNT 4.6 X10'3 (4.5-11.0)
[2021-04-01 07:06] LABS: ALANINE AMINOTRANSFERASE 24 U/L (12-78); ALBUMIN 2.7 G/DL (3.4-5.0); ALBUMIN/GLOBULIN RATIO 0.6 (1.1-1.5); ALKALINE PHOSPHATASE 62 IU/L (46-116); ANION GAP 6 (8-16); ASPARTATE AMINO TRANSFERASE 17 U/L (10-37); BILIRUBIN,TOTAL 0.3 MG/DL (0.1-1.0); BLOOD UREA NITROGEN 16 MG/DL (7-18); BUN/CREATININE RATIO 18.2 (5.4-32.0); CALCIUM 9.1 MG/DL (8.5-10.1); CHLORIDE 106 MMOL/L (99-107); CREATININE 0.88 MG/DL (0.60-1.10); GLUCOSE 87 MG/DL (70-104); MAGNESIUM 2.5 MG/DL (1.5-2.4); POTASSIUM 4.6 MMOL/L (3.5-5.1); SODIUM 141 MMOL/L (135-145); TOTAL CARBON DIOXIDE 29.2 MMOL/L (24-32); TOTAL PROTEIN 7.5 G/DL (6.4-8.2); eGFR > 90 ML/MIN
[2021-04-01 07:20] LABS: PLATELET ESTIMATE NORMAL; TOTAL CELLS COUNTED 100
[2021-04-01 07:40] VITALS: BP 118/69
[2021-04-01] MEDS: nicotine 14mg patch - 24hr TD SCH (08:00)
[2021-04-01] MEDS: K and/or MAG REPLACEMENT MC SCH ×2 (08:00→20:00)
[2021-04-01] MEDS: heparin, porcine 5000 units/ml vial SQ SCH ×2 (08:14→20:33)
[2021-04-01] MEDS: docusate sod 100mg capsule PO SCH ×2 (08:14→20:33)
[2021-04-01] MEDS: mineral oil/petrolatum, white cream 113gm jar TP SCH ×2 (08:15→20:33)
[2021-04-01 12:00] VITALS: BP 119/73
--- NOTE | 2021-04-01 15:16 | NUR ---
Initial: Pt admit DX LLE cellulitis hx meth abuse and homeless per EMR. PO 100% avg regular diet meeting needs. [facility] 03/31 receiving routine colace. Will continue to monitor. Rec: 1. continue regular diet 2. routine bowel care 3. scaled wt this admit Addendum: 04/01/21 at [address] Amended: Links added.
--- NOTE | 2021-04-01 18:18 | NUR ---
Problems reprioritized. Patient report given, questions answered & plan of care reviewed with JANETTE MAGDALENO.
--- NOTE | 2021-04-01 18:30 | NUR ---
Patient in room [facility]. I have received report from BETHANY and had the opportunity to ask questions and assume patient care.
[2021-04-01 19:00] VITALS: BP 119/71
[2021-04-01 23:00] VITALS: BP 101/67
[2021-04-02] MEDS: HYDROcodone/acetaminophen 10/325mg tab PO PRN ×2 (03:10→08:30)
[2021-04-02] MEDS: VANCOmycin 1250MG/NS 250ml Bag 250 ML IV SCH ×2 (05:33→13:00)
[2021-04-02] MEDS: morphine 2 MG/ML inj. syringe IV PRN (05:37)
--- NOTE | 2021-04-02 06:35 | NUR ---
Problems reprioritized. Patient report given, questions answered & plan of care reviewed with BETHANY.
[2021-04-02 07:35] VITALS: BP 91/60
[2021-04-02] MEDS: K and/or MAG REPLACEMENT MC SCH (08:00)
[2021-04-02] MEDS: nicotine 14mg patch - 24hr TD SCH (08:00)
[2021-04-02] MEDS: docusate sod 100mg capsule PO SCH (08:28)
[2021-04-02] MEDS: heparin, porcine 5000 units/ml vial SQ SCH (08:29)
[2021-04-02] MEDS: mineral oil/petrolatum, white cream 113gm jar TP SCH (08:29)
[2021-04-02] MEDS ORDERED: DOXY100C2 PO (11:54)
[2021-04-02] MEDS ORDERED: CEPH-585 PO (11:54)
--- NOTE | 2021-04-02 12:22 | NUR ---
PAGER ID: [phone] MESSAGE: Ruiz Cavanaugh: patient said this is his address: [address] [place] [address] [address] [place] [address]. thanks!
[2021-04-02 13:14] VITALS: BP 112/73
--- NOTE | 2021-04-02 13:40 | NUR ---
PAGER ID: [phone] MESSAGE: eloisa colbertb: change of address is completed. thank you!
[2021-04-02] MEDS ORDERED: HYDR-3965 PO (13:43)
--- NOTE | 2021-04-02 13:57 | NUR ---
Patient stable and appropriate for discharge. IV removed, all belongings taken from room. New medications transmitted to preferred pharmacy. Wound pictures were completed within the last 24hrs (04/01 @ 1700). All discharge instructions and education given and reviewed with patient, all questions answered.
== END 2021-04-02 14:00 | disposition home or self-care (01) | DRG 383 ==
LOC: ER 00:39 → ED HOLD 02:49 → SUR 3N 03:40
PROVIDERS: ADMIT Internal Medicine; ATTEND Family Medicine
DX: L03.116 Cellulitis of left lower limb (principal); B95.62 Methicillin resistant Staphylococcus aureus infection as the cause of diseases classified elsewhere; F12.90 Cannabis use, unspecified, uncomplicated; F15.90 Other stimulant use, unspecified, uncomplicated; Z71.51 Drug abuse counseling and surveillance of drug abuser
CPT/HCPCS: 36415; 71045; 80053; 80202; 80305; 81003; 83605; 83735; 84145; 85007; 85025; 87040; 87070; 87077; 87081; 87186; 93005; 96361; 97116; 97161; 97530; 99285; G0378; J1644; J2270; J2543; J3370; J7030

== ENCOUNTER 2024-12-02 11:50 | Emergency (ER) | payer MEDICAID ==
[~2024-12-02] VITALS: Ht 193 cm; Wt 101.2 kg
[2024-12-02 14:23] VITALS: TEMP 97.5
[2024-12-02] MEDS ORDERED: AMOX-580 PO (15:35)
[2024-12-02] MEDS ORDERED: SULF1TAB49 PO (15:35)
[2024-12-02] MEDS: sulfamethoxazole/trimethoprim DS (800/160mg) tablet PO ONE (15:43)
[2024-12-02] MEDS: CefTRIAXone 1000mg IM Kit (w/lidocaine diluent) IM ONE (15:44)
[2024-12-02 15:47] VITALS: BP 139/91; PULSE 72; RESP 17; O2SAT 99
== END 2024-12-02 16:24 | disposition home or self-care (01) ==
LOC: ER 11:54
DX: L03.116 Cellulitis of left lower limb (principal); F12.90 Cannabis use, unspecified, uncomplicated; F15.90 Other stimulant use, unspecified, uncomplicated
CPT/HCPCS: 96372; 99284; J0696

== ENCOUNTER 2025-05-14 18:46 | Emergency (ER) | payer MEDICAID ==
[~2025-05-14] VITALS: Ht 180.3 cm; Wt 100.0 kg
[2025-05-14 19:16] VITALS: BP 138/91; PULSE 81; O2SAT 97
[2025-05-14] MEDS: ketorolac trometh 15mg/ml vial 15 MG/ML ML IM ONE (23:09)
--- NOTE | 2025-05-14 23:12 | Physician Documentation ---
History of Present Illness ~ Chief Complaint: Mechanical Fall Stated Complaint: MECHANICAL FALL Time Seen by MD: 20:25 Primary Medical Doctor: None HPI This is a 54-year-old male who presents with pain to his right knee, right hip, back of head, and upper back after a mechanical trip and fall earlier today. Patient reports no loss of consciousness and no blood thinners. Tetanus within 5 Years?: Yes Medication Reconciliation Allergies: Coded Allergies: No Known Allergies (Unverified , 05/14/25) Past Medical History Past Medical History: Cellulitis Past Surgical History: no surgical history Alcohol Use: None Drug Use: marijuana, methamphetamine Lives In: Home Review of Systems ROS Right knee pain, right hip pain, upper back pain, and occipital head pain as stated above in the HPI, otherwise all systems are reviewed and negative. Physical Exam Vital Signs: Temperature: 96.8, Source: Temporal, Heart Rate: 81, Respiratory Rate: 18, BP: 138/91, Pulse Oximetry: 97, Weight: 100.000 Physical Exam VITALS: Reviewed and as above. GENERAL: Alert, nontoxic appearing, no apparent distress. HEENT: Posterior scalp tender to palpation, no scalp hematoma. No C-spine tenderness PERRLA, EOMI RESPIRATORY: No increased work of breathing, no respiratory distress, speaking in full clear sentences CHEST: Nontender to palpation, no deformities, no paradoxical movement CV: Regular rate and rhythm no murmur BACK: Tenderness to upper thoracic back, no crepitus, no step-offs, no ecchymosis, no erythema MUSCULOSKELETAL: Right knee tender to palpation, mild swelling as compared to left, brisk capillary refill distal injury, sensation intact distal to injury Progress Results/Orders Results/Orders Completed Orders - TORREY LOPEZ MD Oxycodone Immed Release Tablet (Oxy Ir T (05/15/25 02:45) Vital Signs 05/14/25 05/14/25 05/15/25 05/15/25 19:16 23:09 03:06 03:12 Temp 96.8 96.8 Pulse 81 Resp 16 18 18 B/P (MAP) 138/91 Pulse Ox 97 Medical Decision Making Findings This 54-year-old male presented with pain to his occipital head, upper back, right hip, and right knee after a mechanical fall. Right leg was neurovascula rly intact distal to knee injury. CT head not indicated per [place] C-spine rules due to GCS staying at 15, lack of loss of consciousness, not on blood thinners, no raccoon eyes, no phelps sign, no vomiting, otorrhea or rhinorrhea. There was no C-spine tenderness to indicate need for imaging of the C-spine. Addendum I received sign-out on this patient from the previous provider, pending Radiology review his x-rays. I was then informed that the radiologist would not look at his x-rays tonight, until 6:00 a.m.. I reviewed his x-rays, which show Knee x-ray: Joint effusion, but no fracture or dislocation Hip x-ray: No fracture or dislocation, no pelvic fracture. Spine x-ray: No obvious fracture or malalignment Re-evaluation: I discussed these findings with the patient. He continues to have pain in multiple locations. He does have significant swelling to his knee with a palpable joint effusion. I did offer to drain the effusion and inject numbing medication help with pain control, but he declined. He is placed in a knee immobilizer. He will be discharged with symptomatic treatment and outpatie nt follow up. If he does have unbearable knee pain he will return for re- evaluation for possible arthrocentesis. Radiology reports are pending. The patient was discharged with return precautions. Torrey Lopez MD Departure Time of Disposition: 02:42 Disposition: 01 HOME / SELF CARE / HOMELESS Impression: Primary Impression: Fall Additional Impressions: Knee effusion Back contusion Contusion, hip Condition: Stable Discharge Instructions: Contusion, Knee Effusion Referrals: NO PRIMARY CARE PROVIDER (PCP) Education Educated: Patient Educated regarding: diagnosis, treatment, need for follow up Signature Scribe Signature: na Attestation: LALITO Byrd May 14, 2025 23:12 TORREY LOPEZ MD May 15, 2025 02:43
--- NOTE | 2025-05-15 01:39 | RADIOLOGY REPORT ---
CLINICAL HISTORY: Knee Pain Post Fall TECHNIQUE: 3 views of the right knee were obtained. WID: COMPARISON: None FINDINGS: Normal mineralization and alignment. Tricompartment osteophyte formation. Moderate lateral and mild-t o-moderate medial compartment joint space narrowing. Well corticated osseous densities project anteri or and posterior to the distal femur. No acute fracture. Suprapatellar knee joint effusion. IMPRESSION: No acute fracture or traumatic malalignment. Tricompartment osteoarthritis with moderate lateral compartment joint space narrowing. Well corticated osseous densities project adjacent to the distal femur which could reflect intra-gennaro cular loose bodies or heterotopic ossification. Suprapatellar knee joint effusion.
[2025-05-15 03:06] VITALS: RESP 18
[2025-05-15] MEDS: oxyCODONE IR 5mg (immed. release) tablet PO ONE (03:06)
[2025-05-15 03:12] VITALS: TEMP 96.8
--- NOTE | 2025-05-15 04:13 | RADIOLOGY REPORT ---
[facility] INDICATION: T Back Pain Post Fall COMPARISON: 3 TECHNIQUE:3 views of the thoracic spine were obtained. FINDINGS: The thoracic vertebral alignment is normal. Compression deformity T10 vertebral body No acute fracture, vertebral compression deformity or aggressive osseous lesions. The imaged thorax and abdomen are grossly unremarkable. IMPRESSION: No acute fracture.
--- NOTE | 2025-05-15 04:14 | RADIOLOGY REPORT ---
EXAM: DI HIP UNILATERAL 2 VIEWS CLINICAL INDICATION: Hip Pain Post Fall TECHNIQUE: DI HIP UNILATERAL 2 VIEWS Comparison: None FINDINGS/IMPRESSION: There is no evidence of acute fracture or dislocation. Moderate bilateral hip osteoarthritis The alignment is anatomical. There is no radiopaque foreign body.
== END 2025-05-15 03:14 | disposition home or self-care (01) ==
LOC: ER 18:47
DX: S20.221A Contusion of right back wall of thorax, initial encounter (principal); S70.01XA Contusion of right hip, initial encounter; M25.461 Effusion, right knee; F12.90 Cannabis use, unspecified, uncomplicated; F15.90 Other stimulant use, unspecified, uncomplicated; W01.0XXA Fall on same level from slipping, tripping and stumbling without subsequent striking against object, initial encounter; Y93.89 Activity, other specified; Y92.89 Other specified places as the place of occurrence of the external cause; Y99.8 Other external cause status
CPT/HCPCS: 29505; 72074; 73502; 73564; 96372; 99285; J1885; 99284